=== PATIENT | female | born 1950 | race Caucasian/White ===

== ENCOUNTER 2023-09-25 06:14 | Inpatient (IN) | payer MEDICARE, OTHER, SELFPAY ==
--- NOTE | 2023-09-02 10:02 | CM ---
Patient is scheduled for an elective R TKR on 09/25/23. Spoke with patient prior to surgery via telephone. Introduced role of Orthopedic Navigator. Patient reports that she lives alone in a two story home. There are two steps to enter and a flight of
steps to the second floor. There is a powder room on the entry level account manager. She currently functions independently. She holds a cane when outside of the house. She has no other DME and has never had VN services. PCP is Dr. Phillip Box.
Discussed orthopedic program and post surgical plans. Reviewed anticipated length of stay and that goal is for her to return home at discharge. Also reviewed outpatient PT. Patient is in agreement with tentative plan and will go directly to
outpatient PT at [facility]. Her daughters will be staying with her for a few days after surgery.
Patient will complete online education.
Plan: Orthopedic Navigator will remain available to assist with the care of patient and will reassess discharge needs after surgery.
[2023-09-06 14:07] VITALS: BMI 26.0
[2023-09-06 14:24] LABS: % Basophils 0.6 % (0-2); % Eosinophils 0.6 % (0-6); % Immature Granulocytes 0.3 % (0-0.5); % Neutrophils 66.5 % (42.2-75.2); Absolute Lymphocytes 1.8 10^3/uL (1.2-3.4); Absolute Monocytes 0.4 10^3/uL (0.1-0.6); Absolute Neutrophils 4.5 10^3/uL (1.4-6.5); Hematocrit 43.5 % (37.0-47.0); Mean Corp Hgb Conc. 34.5 g/dL (33.0-37.0); Mean Corpuscular Hgb 32.9 pg (27.0-31.0); Mean Corpuscular Volume 95.4 fL (81.0-99.0); Mean Platelet Volume 10.3 fL (7.4-10.4); Nucleated Red Blood Cells % 0 %; Platelet Count 205 10^3/uL (130-400); Red Blood Cell Count 4.56 10^6/uL (4.20-5.40); Red Cell Dist. Width 11.9 % (11.5-14.5); White Blood Cell Count 6.7 10^3/uL (4.8-10.8)
[2023-09-06 14:34] LABS: Glycohemoglobin (HgbA1c) 5.3 % (4.0-5.6)
[2023-09-06 14:54] LABS: ALT (SGPT) 32 U/L (0-35); AST (SGOT) 29 U/L (14-36); Albumin 4.5 g/dl (3.5-5.0); Alkaline Phosphatase 66 U/L (38-126); Blood Urea Nitrogen 16 mg/dl (7-17); Calcium 9.5 mg/dl (8.4-10.2); Carbon Dioxide 28 mmol/L (22-30); Chloride 103 mmol/L (98-107); Estimated Creatinine Clearance 56 ml/min; Glucose 90 mg/dl (70-99); Potassium 4.6 mmol/L (3.5-5.1); Sodium 133 mmol/L (135-145); Total Bilirubin 1.2 mg/dl (0.2-1.3); Total Protein 6.9 g/dl (6.3-8.2); eGFR > 60.00
[2023-09-06 15:30] VITALS: BMI 26.0
[2023-09-25] VITALS (10 sets, daily range): BP systolic 120–176; BP diastolic 59–87
[2023-09-25] MEDS: BACTROBAN NASAL 1 GRAM NASAL (12:30)
[2023-09-25] MEDS: TYLENOL 650 MG PO ×4 (12:32→23:33)
[2023-09-25] MEDS: CELEBREX 200 MG PO (12:32)
[2023-09-25] MEDS: NORMOSOL-R 1000 IV ×2 (12:41→16:52)
--- NOTE | 2023-09-25 13:29 | W.PN.UPDATE ---
Update Note
Progress Note Update
R knee OA s/p R TKA w/ Dr Gorman 09/25/23
DVT prophylaxis - ASA, b/l venous foot pumps
Elevation blood pressure without diagnosis of hypertension - monitor BP
GERD and remote GI ulcer - adjust Pepcid from daily prn to daily
- Minimize NSAIDs as able
Epilepsy, last seizure 2012 - continue Keppra
Hyperlipidemia
Thyroid nodules
Stress incontinence
Overactive bladder.
Malignant melanoma, 1995, status post excision
Mild hyponatremia
Remote history of tobacco abuse
--- NOTE | 2023-09-25 15:49 | OR.RPT ---
Operative Report
Operative Report
Anesthesia Type:
General with adductor canal block
Operative Indications:
Right knee osteoarthritis
Operative Findings :
Right knee osteoarthritis, valgus knee, large loose body noted anterior lateral knee
Complications:
None
Implants:
Denia persona knee, D tibia, size 4 femur, size 13 poly, size 29 patella
Procedure and Technique:
Right total knee arthroplasty
INDICATIONS FOR PROCEDURE:
73-year-old female history of right knee osteoarthritis with persistent pain who failed conservative treatment consisting of activity modification, anti-inflammatory medications, home exercise program, physical therapy as well as a variety of
injections. I do long discussion with the patient regarding further treatment options including continued conservative treatment and surgical intervention. After discussion, patient elected to proceed with surgical intervention from a right total
knee arthroplasty. Discussed risks benefits and alternatives of surgery. Discussed usual expected perioperative postoperative course. I did have a telephone conversation the patient yesterday evening when it was determined that she had a
hyaluronic acid supplementation injection about 10 weeks ago. She had been inadvertently scheduled for surgery less than 3 months after the injection typically recommend at least 3 months after injections before total knee arthroplasty. I
explained this in detail to her and did state that she would be to slightly elevated risk of periprosthetic joint infection. She had made significant arrangements in her personal life including having her daughter visit from out of state for the
postoperative course and she elected to continue with surgical intervention with understanding that she might be at a slightly higher risk of periprosthetic joint infection.
OPERATIVE PROCEDURE:
Patient was seen identified the preoperative holding area. Operative extremities marked. All questions were addressed. She was taken to the operating room where general anesthesia in addition to adductor canal block was administered. Operative
extremities then prepped and draped in normal sterile fashion. Nonsterile tourniquet was applied. Timeout was performed again identifying the correct operative extremity. Preoperative antibiotics and TXA were addressed. Standard anterior
posterior to the knee was taken. Sharp dissection was carried through skin subcutaneous tissues. Medial parapatellar approach was then taken through deep fascial layer. The fat pad and hypertrophic synovial tissue was then excised.
Intramedullary jig was utilized for the distal femoral cut. This was set to 5 degrees of valgus. Attention was then turned to the tibial cut. Extra medullary jig was utilized with approximately 5 degrees of posterior slope. Attention was then
returned to the femur where measuring jig was utilized sizing the distal femur to a size 4. 4-in-1 cutting guide was then applied according to technique guide. Anterior posterior as well as anterior posterior chamfer cuts were then performed.
Trial implants were then inserted and taken through range of motion. With a size 12 poly with appropriate stability in both extension and flexion. The patella was then measured to a size 22 approximately 8 mm cut was then performed. Trial patella
was then placed and found to be stable to range of motion. Implants were then removed and tibia was prepared according to technique guide. Knee was then copiously irrigated with normal saline solution and the tibial and femoral surfaces were
dried. Final tibial and femoral implants were then cemented into place in addition to the patella and trial poly was placed in full extension. Once cement had hardened, it was found that a size 13 mm poly insert showed good stability in flexion
extension. Tourniquet was released after removal of trial poly and hemostasis was achieved with electrocautery. Wound was irrigated and final poly implant was inserted and taken to range of motion with complete extension good stability both
extension and flexion and mid flexion. Wound was again copiously irrigated normal saline solution in addition to Betadine. Wound was then closed in a layered fashion utilizing 0 Vicryl for deep fascial layer, 2-0 Vicryl for subcutaneous layer and
jessica for skin. Aquacel dressing was applied. Anesthesia was reversed and patient was taken to PACU in stable condition. Postoperative plans include weightbearing the patient's tolerance operative extremity. Recommend aspirin 325 daily for DVT
prophylaxis. Patient work with physical therapy in the morning and plan for discharge tomorrow morning. Plan to see patient back 2 weeks postop.
Disposition:
PACU stable condition
[2023-09-25] MEDS: MORPHINE SULFATE 1 MG IV (16:30)
[2023-09-25] MEDS: ROXICODONE 5 MG PO ×2 (18:12→23:34)
[2023-09-25] MEDS: VITAMIN D3 (cholecalciferol) 25 MCG PO (18:13)
[2023-09-25] MEDS: CRESTOR 10 MG PO (18:13)
[2023-09-25] MEDS: ASPIRIN 325 MG PO (18:13)
[2023-09-25] MEDS: DETROL LA 4 MG PO (18:13)
[2023-09-25] MEDS: LIDOCAINE 4% PATCH 2 PATCH TOPICAL (18:14)
[2023-09-25] MEDS: ANCEF 5 IV (19:57)
[2023-09-25] MEDS: BACTROBAN 2% OINTMENT 1 APPLIC NASAL (19:59)
[2023-09-25] MEDS: COLACE 100 MG PO (20:00)
[2023-09-25] MEDS: SENOKOT 17.1999999999999993 MG PO (20:00)
[2023-09-25] MEDS: PEPCID PO (20:03)
[2023-09-25] MEDS: KEPPRA XR (EXTENDED RELEASE) 500 MG PO (21:27)
[2023-09-25] MEDS: TORADOL 15 MG IV (21:27)
[2023-09-25] MEDS: PEPCID 20 MG PO (23:34)
--- NOTE | 2023-09-25 23:45 | PTCARENOTE ---
Pt was able to get up to the commode with assistance and RW. Pt was educated about knee restrictions. Pt had a hard time voiding. Pt as bladder scanned and had 255 ml . Will cont with tx.
[2023-09-26 04:00] VITALS: BP 133/70
[2023-09-26] MEDS: TYLENOL 650 MG PO ×2 (04:17→08:09)
[2023-09-26] MEDS: ANCEF 5 IV (04:17)
[2023-09-26 07:10] VITALS: BP 105/87
[2023-09-26] MEDS: CRESTOR 10 MG PO (08:09)
[2023-09-26] MEDS: VITAMIN D3 (cholecalciferol) 25 MCG PO (08:09)
[2023-09-26] MEDS: FLOMAX 0.400000000000000022 MG PO (08:09)
[2023-09-26] MEDS: ROXICODONE 5 MG PO (08:09)
[2023-09-26] MEDS: ASPIRIN 325 MG PO (08:10)
[2023-09-26] MEDS: BACTROBAN 2% OINTMENT 1 APPLIC NASAL (08:10)
[2023-09-26] MEDS: LIDOCAINE 4% PATCH 2 PATCH TOPICAL (08:10)
[2023-09-26] MEDS: DETROL LA 4 MG PO (08:10)
[2023-09-26] MEDS: COLACE 100 MG PO (08:10)
[2023-09-26] MEDS: SENOKOT 17.1999999999999993 MG PO (08:10)
--- NOTE | 2023-09-26 08:47 | CM ---
Addendum entered by Evelina Fox 09/26/23 11:06:
Patient did well in therapy. She has no concerns about going home and has updated her family.
Original Note:
Reviewed chart and held rounds with PT, OT and nursing. Patient admitted as planned for elective R TKR. Met with patient at bedside. Confirmed information previously obtained for assessment. Also discussed discharge plans. The plan is for patient to
return home at discharge. Her daughters will be staying with her until Saturday. Patient will go directly to outpatient PT and will go to [facility]. She has an appointment scheduled for Saturday, 09/27.
Patient has a cane. She will need a rolling walker issued prior to discharge; script obtained and given to PT.
She will use [facility] pharmacy for discharge prescriptions.
[2023-09-26 09:22] VITALS: BP 118/75; PULSE 80; O2SAT 99
--- NOTE | 2023-09-26 10:40 | W.PN.ORTHO ---
Documented by User: Bia Escobedo PA-C 09/26/23 10:46
Today's Communication / Plan
-
Await PT and OT recs.
Monitor urination.
D/c later today if clinically stable/urinary issues improve.
Assessment
.
Dressing:
Small amount of old incisional bleeding towards inferior portion of dressing.
Assessment:
R knee OA s/p R TKA w/ Dr Gorman 09/25/23
DVT prophylaxis - ASA, b/l venous foot pumps
Acute on chronic urinary retention - pt reports she 'rarely' goes at home due to Vesicare for previously dx OAB
- Did require straight cath overnight
- Unfortunately did already get Vesicare this AM - d/c now
- Was able to urinate 100 cc w/ aid of Flomax - consider Flomax course upon d/c
- Continue to monitor for now; possible mcgill cath if retention continues
Elevation blood pressure without diagnosis of hypertension - BPs stable
GERD and remote GI ulcer - adjust Pepcid from daily prn to daily
- Minimize NSAIDs as able
Epilepsy, last seizure 2012 - continue Keppra
Hyperlipidemia
Thyroid nodules
Stress incontinence
Malignant melanoma, 1995, status post excision
Mild hyponatremia
Remote history of tobacco abuse
Plan
.
Surgery / Date: R TKA w/ Dr Gorman 09/25/23
DVT Prophylaxis: Aspirin
Activity:
Out of bed.
PT/OT
Discharge Plan: Home w/ Outpatient PT
Subjective
.
.:
Patient resting comfortably in her bed this AM.
Acute on chronic urinary retention. Pt finally voided 100 cc of urine this AM.
R knee pain overall well controlled w/ current meds.
Eager for potential d/c today.
Vital Signs and Labs
.
Vital Signs and Labs:
Lab Results
09/06/23 13:29
09/06/23 13:29
Temp Pulse Resp BP Pulse Ox
97.8 F 73 16 105/87 99
09/26/23 04:00 09/26/23 07:10 09/26/23 07:10 09/26/23 07:10 09/26/23 07:10
Non-invasive Hgb result: 12.6
Physical Exam
-
HEENT: No pallor, cyanosis, or jaundice. Throat clear.
NECK: Supple. No JVD.
RESPIRATORY: Lungs clear to auscultation.
CVS: S1, S2 normal. RRR.� No murmur, rub or gallop.
ABDOMEN: Soft, non-tender. No distension.
EXTREMITIES: R knee post-surgical edema. Strength equal, no calf pain with palpation/dorsiflexion. Calves soft.
CLEANER WINDOW: AOx3. No focal deficits. radio commentator grossly intact

Documented by User: Enrrique Gorman MD 09/26/23 11:57
Today's Communication / Plan
-
Await PT and OT recs.
Monitor urination.
D/c later today if clinically stable/urinary issues improve.
Did see patient personally this morning and reported well controlled pain. She did state she required straight cath over night for urinary retention. She had ambulated without difficulty over night with her nurse. Dressing was with minimal bloody
drainage. Plan for DC today pending urinary retention resolution and PT recommendations.
[2023-09-26 11:00] VITALS: BP 146/70; PULSE 74; O2SAT 98
--- NOTE | 2023-09-26 11:01 | W.PN.UPDATE ---
Update Note
Progress Note Update
PVR <400 after voiding this morning.
Have advised pt d/c Vesicare for now and start Flomax daily x1 week.
Pt to talk to PCP about when to resume Vesicare given chronic urinary issues.
She is aware to go to ER if she's still retaining by later this evening or if urination becomes to painful.
Given all of this, pt stable for d/c today.
--- NOTE | 2023-09-26 11:04 | W.DS.TRANS ---
DC Summary - [employer]
-
Discharge Instructions:
Sleep Apnea Risk Low
Discharge Diagnosis/Procedures R knee OA s/p R TKA w/ Dr Gorman 09/25/23
Diet Regular
Activity As tolerated,With Walker
Driving Restrictions Not until seen by your Dr
Bathing Restrictions OK to Shower
Other Services PT
Stop these medications: Vesicare due to post-surgical urinary retention
issues. You can discuss with primary care when
you should resume this medication.
Instructions:
Stand-Alone Forms: Total Hip/Knee Replacement D/C
Changes to Home Medications: Yes
Discharge Medications:
DC Medications w/original date entered in [employer]([place])
biotin 1 dose PO DAILY 09/03/23
famotidine 20 mg tablet (Pepcid) 20 mg PO DAILYPRN PRN acid relfux 09/03/23
folic acid-vit B6-vit B12 2.5 mg-25 mg-2 mg tablet (Folbic) 1 tab PO DAILY 09/03/23
levetiracetam 500 mg tablet 500 mg PO HS 09/03/23
rosuvastatin 10 mg tablet 10 mg PO DAILY 09/03/23
cholecalciferol (vitamin D3) 25 mcg (1,000 unit) tablet 25 mcg PO DAILY 09/06/23
mupirocin 2 % topical ointment 1 applic intranasal BID #1 tube 09/06/23
acetaminophen 325 mg tablet 650 mg PO Q4HWA #60 tabs 09/26/23
aspirin 325 mg tablet 325 mg PO DAILY #30 tabs 09/26/23
docusate sodium 100 mg capsule 100 mg PO BID #30 caps 09/26/23
lidocaine 4 % topical patch 2 patch topical DAILY #30 ea 09/26/23
oxycodone 5 mg tablet 5 - 10 mg PO Q6H PRN moderate-severe pain #30 tabs 09/26/23
prochlorperazine maleate 5 mg tablet (Compazine) 5 mg PO TID PRN nausea and vomiting #20 tabs 09/26/23
sennosides 8.6 mg tablet (Senna Lax) 17.2 mg PO BID #30 tabs 09/26/23
tamsulosin 0.4 mg capsule (Flomax) 0.4 mg PO DAILY #7 caps 09/26/23
Home Medication Changes
acetaminophen 325 mg tablet 650 mg PO Q4HWA #60 tabs 09/26/23
aspirin 325 mg tablet 325 mg PO DAILY #30 tabs 09/26/23
docusate sodium 100 mg capsule 100 mg PO BID #30 caps 09/26/23
lidocaine 4 % topical patch 2 patch topical DAILY #30 ea 09/26/23
oxycodone 5 mg tablet 5 - 10 mg PO Q6H PRN moderate-severe pain #30 tabs 09/26/23
prochlorperazine maleate 5 mg tablet (Compazine) 5 mg PO TID PRN nausea and vomiting #20 tabs 09/26/23
sennosides 8.6 mg tablet (Senna Lax) 17.2 mg PO BID #30 tabs 09/26/23
tamsulosin 0.4 mg capsule (Flomax) 0.4 mg PO DAILY #7 caps 09/26/23
Holding Vesicare
Pending Results: No
== END 2023-09-26 11:57 | disposition home or self-care (01) | DRG 470 ==
LOC: 2 SOUTH 06:14
PROVIDERS: ADMITTING PHYSICIAN Orthopaedic Surgery; FAMILY PHYSICIAN Family Medicine
PROC: 0SRC0J9 Replacement of Right Knee Joint with Synthetic Substitute, Cemented, Open Approach (ICD-10-PCS; 2023-09-25)
DX: M17.11 Unilateral primary osteoarthritis, right knee (principal); E87.1 Hypo-osmolality and hyponatremia; R03.0 Elevated blood-pressure reading, without diagnosis of hypertension; E78.5 Hyperlipidemia, unspecified; K21.9 Gastro-esophageal reflux disease without esophagitis; G40.909 Epilepsy, unspecified, not intractable, without status epilepticus; E04.2 Nontoxic multinodular goiter; N39.3 Stress incontinence (female) (male); R33.9 Retention of urine, unspecified; N32.81 Overactive bladder; Z85.820 Personal history of malignant melanoma of skin; Z87.11 Personal history of peptic ulcer disease; Z87.891 Personal history of nicotine dependence
CPT/HCPCS: 36415; 73560; 80053; 83036; 85025; 87070; 93005; 97110; 97116; 97162; 97530; 97535; C1713; C1776

== ENCOUNTER → 2024-01-02 12:08 | Outpatient (REF) | payer MEDICARE, OTHER, SELFPAY | LOC: MRI 3T 12:08 | PROVIDERS: ATTENDING PHYSICIAN Family Medicine | DX: M54.9 Dorsalgia, unspecified (principal) | CPT/HCPCS: 72148 ==

== ENCOUNTER → 2024-01-10 10:32 | Outpatient (REF) | payer MEDICARE, OTHER, SELFPAY | LOC: RAD 10:32 | PROVIDERS: ATTENDING PHYSICIAN Family Medicine | DX: M81.0 Age-related osteoporosis without current pathological fracture (principal) | CPT/HCPCS: 77080 ==

== ENCOUNTER → 2024-02-26 14:20 | Outpatient (REF) | payer MEDICARE, OTHER, SELFPAY | LOC: WDC 14:20 | PROVIDERS: ATTENDING PHYSICIAN Family Medicine | DX: Z12.31 Encounter for screening mammogram for malignant neoplasm of breast (principal) | CPT/HCPCS: 77063; 77067 ==

== ENCOUNTER → 2025-07-06 06:52 | Outpatient (REF) | payer MEDICARE, OTHER, SELFPAY | LOC: RCS 06:52 | PROVIDERS: ATTENDING PHYSICIAN Internal Medicine; FAMILY PHYSICIAN Family Medicine | DX: I63.9 Cerebral infarction, unspecified (principal); I10 Essential (primary) hypertension; E78.00 Pure hypercholesterolemia, unspecified | CPT/HCPCS: 93306 ==

== ENCOUNTER 2025-07-09 09:31 | Day surgery (SDC) | payer MEDICARE, OTHER, SELFPAY ==
--- NOTE | 2025-07-09 12:55 | ITS.CL.IMPLP ---
[employer] - Implant Loop
Implant Loop
Procedure Report:
Procedure: Insertion of Loop Recorder.
Date of the procedure: 07/09/2025
Procedure Physician: Arben Novak MD [facility]
Indication: CVA
Description of the procedure:
Patient was brought to the holding area after informed consent was obtained from the patient. The time out was performed immediately before the procedure.
The left parasternal chest area was prepped and draped in sterile fashion with chlorhexidine prep x 3 times. Lidocaine 1% was injected subcutaneously for local anesthesia. The loop recorder was tunneled and then injected into the subcutaneous
tissue. The tunneling tool was removed leaving the loop recorder in place. The skin was closed with steristrips and a pressure Tegaderm dressing was placed. There were no immediate complications.
Post procedure, the device was interrogated and showed good detectable P and R waves.
There were no immediate complications.
Device:
Bustlet-IQ EL+; Model: [id number]; Serial #:[id number]
R wave amplitude: 0.8mV
Final Programming:
��� Tachycardia Detection: 150 bpm for 12 beats
�������������� Bradycardia Detection: 30 bpm for 4 beats, Asystole for 5 seconds
�������������� Atrial fibrillation detection: On
� Continuous burden: 6 min and daily burden 6 hours, AF alert 2 min
Detection qualifier: On (sudden onset; onset Delta 18%)
Bigeminy Qualifier: On
Conclusion:
Successful insertion of loop recorder.
Recommendation:
Routine post-insertion loop care.
== END 2025-07-09 13:27 | disposition home or self-care (01) ==
LOC: CATH 09:31
PROVIDERS: ATTENDING PHYSICIAN Internal Medicine Cardiovascular Disease; FAMILY PHYSICIAN Family Medicine; OTHER PHYSICIAN Internal Medicine
DX: Z09 Encounter for follow-up examination after completed treatment for conditions other than malignant neoplasm (principal); Z86.73 Personal history of transient ischemic attack (TIA), and cerebral infarction without residual deficits; Z79.82 Long term (current) use of aspirin; Z79.899 Other long term (current) drug therapy; Z79.02 Long term (current) use of antithrombotics/antiplatelets; Z87.891 Personal history of nicotine dependence; I10 Essential (primary) hypertension; E78.00 Pure hypercholesterolemia, unspecified; I08.0 Rheumatic disorders of both mitral and aortic valves
CPT/HCPCS: 33285; 93320; 93325; 93312; C1764